=== PATIENT | female | born 1980 | race Caucasian/White ===

== ENCOUNTER 2019-12-03 20:33 | Emergency (ER) | payer SELFPAY ==
--- NOTE | 2019-12-03 20:34 | XRR_ITS ---
PROCEDURE INFORMATION: Exam: XR Right Elbow Exam date and time: 12/03/2019 9:07 PM Age: 39 years old Clinical indication: Injury or trauma; Injury history: PT hit elbow on hard objest; Initial encounter; Blunt trauma (contusions or hematomas; Right TECHNIQUE: Imaging protocol: XR Right elbow. Views: 3 or more views. COMPARISON: No relevant prior studies available. FINDINGS: Bones/joints: No visible fracture, subluxation, or dislocation. Soft tissues: Calcified tendoni of chronic lateral epicondylitis. XR/XR elbow RT min 3V* [id number] IMPRESSION: No visible fracture, subluxation, or dislocation.
[2019-12-03 21:26] VITALS: BP 136/87; PULSE 70; RESP 18; TEMP 36.7; O2SAT 98; BMI 19.3
--- NOTE | 2019-12-03 21:49 | ED_ITS ---
HPI - Extremity Problem General: Chief complaint: Extremity Injury, Upper Stated complaint: right elbow injury Time Seen by Provider: 12/03/19 21:30 History of Present Illness: HPI Narrative: Dara is a 39-year-old female who comes in complaining of left elbow swelling as she hit her left elbow on a door earlier today. As the day has gone on her pain is become worse and she is developed a bruise and swelling. She denies any radicular symptoms or distal nu mbness, tingling or weakness. Associated symptoms: Deny chest pain, fever(s) or rash Review of Systems Const: Denies: fever(s), chills, body aches, fatigue, malaise, night sweats or diaphoresis Eyes: Denies: change in vision, blurry vision or blind spots ENMT: Denies: throat pain, odynophagia, hoarseness, ear or mastoid pain, ear discharge, change in hearing or nasal discharge Card: Denies: chest pain, palpitations, irregular heart rhythm, lightheadedness, syncope, pre-syncope, dyspnea on exertion or orthopnea Resp: Denies: dyspnea, productive cough, non-productive cough, wheezing, hemoptysis or chest congestion GI: Denies: abdominal pain, nausea, vomiting, hematemesis, coffee ground emesis, heartburn, diarrhea, constipation, GI cramping, hematochezia or melena : Denies: flank pain, dysuria, urinary frequency, urinary urgency, oliguria, urinary incontinence or hematuria Musc: Denies: neck pain, back pain, extremity pain, extremity swelling, joint pain, joint swelling, joint redness, joint warmth or joint stiffness Skin/Breast: Denies: rash, pruritus, erythema, skin tenderness or jaundice Neuro: Denies: headache(s), numbness in extremities, weakness in extremities, sensory changes, lack of coordination, difficulty walking, dizziness, vertigo, confusion or Slurred speech present Endo: Denies: polyuria, polydipsia, tired all the time, cold intolerance, excessive sweating, flushing, hot flashes or heat intolerance Brady/Lymph: Denies: easy bruising, easy bleeding, petechiae, purpura or enlarged lymph nodes All/Imm: Denies: urticaria, throat swelling, tongue swelling, facial swelling or acute wheezing PFSH ED PFSH: Medical History No pertinent past medical history Social History Smoking and tobacco status: current every day smoker Female Reproductive History: Date of last menstrual period: 10/21/19 Physical Exam Const: COMMON NORMALS: no acute distress, patient oriented x3, no limitations, healthy appearing and well nourished EXAM LIMITATIONS: no altered mental status GENERAL APPEARANCE: cooperative, well kempt and well developed HENMT: COMMON NORMALS: normocephalic, atraumatic, hearing grossly normal bilaterally, external ears normal, EAC's normal, Normal external nose present and moist oral mucous membranes HEAD & SCALP: normal to inspection, normocephalic and atraumatic FACE & SINUS: normal facial exam and face symmetric NOSE: Normal external nose present and Normal nares present EXTERNAL EAR: Yes external ears normal EXTERNAL AUDITORY CANAL: EAC's normal MOUTH: Normal oral and palatal mucosa present, lip normal and tongue normal Eye: COMMON NORMALS: Equal, round and reactive pupils present, EOMs intact bilaterally, conjunctivae normal and no scleral icterus GENERAL EYE: appearance normal, both eyes and all related structures ALIGNMENT: Yes alignment normal PERIORBITAL: periorbital findings normal EYELID: eyelids normal CONJUNCTIVA: Yes conjunctivae normal SCLERA: sclerae normal PUPIL: Yes Equal, round and reactive pupils present Neck/C-Spine: COMMON NORMALS: full ROM, no lymphadenopathy, supple, no meningeal signs and no JVD GENERAL: Yes normal visual inspection and Yes trachea midline CERVICAL SPINE: Yes cervical ROM normal Chest: COMMONS NORMALS: normal inspection of the chest and normal palpation of entire chest wall Resp: COMMON NORMALS: normal respiratory effort, No retractions, No use of accessory muscles and clear to auscultation bilaterally EFFORT & INSPECTION: Yes able to speak in complete sentences AUSCULTATION: clear to auscultation bilaterally, no crackles, no rales, no rhonchi and no wheezes Cardio: COMMON NORMALS: no JVD, regular rate, regular rhythm, S1 normal heart sound present, S2 normal heart sound present, No gallops present (Cardio), No clicks present (Cardio), No murmurs present (Cardio) and No rub (Cardio) RATE: regular rate RHYTHM: regular rhythm HEART SOUNDS: S1 normal heart sound present, S2 normal heart sound present, no click, no gallops, no murmurs and no rubs GI: COMMON NORMALS: Soft to palpation, non-tender, No hepatosplenomegaly present and no masses PALPATION: Yes Soft to palpation, No Tenderness to palpation present (GI), No Guarding due to palpation present (GI), No Rigid due to palpation, Yes No hepatosplenomegaly present, No Hernia present, No Palpable mass present and No Pulsatile mass present : COMMON NORMALS: Yes no CVA tenderness BLADDER/KIDNEY EXAM: Yes no CVA tenderness EXTERNAL FEMALE EXAM: No Hernia present Back/Pelvis: COMMON NORMALS: no CVA tenderness, thoracic and lumbar spine n ormal to inspection, no thoracic nor lumbar tenderness and thoraco-lumbar ROM normal Extremity: COMMON NORMALS: normal to inspection, full ROM, capillary refill normal, no joint enlargement, no clubbing, cyanosis or edema and no calf tenderness LEFT UPPER EXTREMITY: Yes elbow joint (Mild swelling and ecchymosis noted.) Neuro: COMMON NORMALS: patient oriented x3, CN's II-XII intact bilaterally, moves all extremities, no focal motor deficits and no sensory deficits noted MENINGEAL SIGNS: Yes no meningeal signs SPEECH: speech normal Psych: COMMON NORMALS: mental status grossly normal, Normal thought process present, cooperative, normal affect, speech normal and activity/motor behavior normal APPEARANCE: Yes well kempt SPEECH: Yes normal speech THOUGHT PROCESS: Normal thought process present Skin: COMMON NORMALS: no rashes or lesions noted, turgor normal, no jaundice, no petechiae and no mottling GENERAL SKIN EXAM: no rashes or lesions noted and turgor normal Course Vital Signs: Vital signs: Vital Signs Temperature 98.1 F 12/03/19 21: Pulse Rate 70 12/03/19 21: Respiratory Rate 18 12/03/19 21:26 Blood Pressure 136/87 12/03/19 21:26 Pulse Oximetry 98 12/03/19 21:26 MDM - Extremity (Nontraumatic) MDM Narrative: Medical decision making narrative: Patient shows no sign of fracture or dislocation. I see no sign of traumatic bursitis or other injuries at this time other than a superficial contusion. Patient agrees to try Tylenol and Motrin and will follow-up with her doctor or Dr. Valdez if necessary and her pain continues. Imaging Data^: Left Elbow: My impression: No acute fractures or dislocations. Probable calcified tendons present. Discharge Plan Discharge Patient Disposition: Home, Self-Care Clinical Impression: Contusion Qualifiers: Encounter type: initial encounter Contusion area: elbow Laterality: left Qualified Code(s): S50.02XA - Contusion of left elbow, initial encounter Condition: Stable Prescriptions: No Action No Known Home Medications RF: 0 Discharge Orders: Discharge Order (Routine); Ordered 12/03/19 Ordered By: Elda River Referrals: Brendan Valdez MD [Physician] - 1-3 days Discharge Diet: Advance as tolerated Discharge Activity: Increase activity as tolerated Patient Instructions: Contusion in Adults (ED) Activity Restrictions/Additional Instructions: Please return to the ER immediately for any of the signs or symptoms listed on your discharge instruction sheets, worsening/changing of your symptoms, you are not getting better as quickly as expected, or for ANY other cause or concerns. Continue alternating heat and ice and use Tylenol and Motrin as needed for pain. If your pain continues or worsens or your swelling worsens return to the ER or be certain to follow-up with Dr. Valdez. Coding Level of Care Code ED Electronics Engineer for Kati Felix
[2019-12-03] MEDS: ibuprofen 600 mg Tablet PO (22:25)
[2019-12-03 22:26] VITALS: BP 136/87; PULSE 70; RESP 18; TEMP 36.7; O2SAT 98
--- NOTE | 2019-12-05 08:34 | DCPLANNER ---
industrial hygiene manager had message to schedule a follow up appointment for patient with ortho. industrial hygiene manager called the ortho clinic, spoke with Kiersten, gave clinic patients information. industrial hygiene manager was told that patients information would be printed and reviewed. Clinic will call case finisher and patient with appointment information.
--- NOTE | 2019-12-25 08:17 | DCPLANNER ---
Fozia from ortho told case therapist that a follow up appointment was scheduled for patient, then patient called and cancelled appointment.
== END 2019-12-03 22:27 | disposition home or self-care (01) ==
PROVIDERS: Emergency Provider Emergency Medicine
DX: S50.02XA Contusion of left elbow, initial encounter (principal); F17.210 Nicotine dependence, cigarettes, uncomplicated; W22.09XA Striking against other stationary object, initial encounter
CPT/HCPCS: 12345; 73080; 99281; 99283